=== PATIENT | female | born 1960 | race Caucasian/White ===

== ENCOUNTER 2024-11-30 09:13 | Emergency (ER) | payer MEDICARE, SELFPAY ==
[2024-11-30 09:15] VITALS: BP 140/71
[2024-11-30 10:48] VITALS: BP 126/72
[2024-11-30 10:50] VITALS: BP 126/72; BMI 25.8
[2024-11-30 11:00] VITALS: BP 132/72
--- NOTE | 2024-11-30 11:24 | ED.GENMED ---
History of Present Illness
General
Chief Complaint: Abdominal Symptoms
Source: patient
Exam Limitations: none
Time Seen by Provider: 11/30/24 10:38
Nursing documentation reviewed up to this point in time: agreed with
History of Present Illness
History of Present Illness:
64-year-old female with a past medical history of hypertension and asthma who presents to the emergency department for evaluation of pelvic pain and vaginal discharge. Unfortunately patient recently was diagnosed with a uterine mass a few days ago
and is in the process of workup and evaluation of this issue. She says that last month she started having some watery vaginal discharge. Initially saw her primary doctor who thought it could be related to overflow incontinence from her urethra and
referred her to a urogynecologist (Dr. Palmer, [facility]). Apparently was sent for pelvic ultrasound last week as part of evaluation and was found to have nearly 10 cm uterine mass. She says that she was referred to [facility] and
decided to pursue care at [facility] and has an appointment with Dr. Peoples tomorrow.
She is here in the emergency room today because since her ultrasound last week she says she has had increased amount of vaginal discharge. She describes thin watery clear discharge. She also reports increased pelvic pressure. She says that she
wanted to be evaluated 'to make sure I am okay to wait for my appointment tomorrow.' She has not had any vaginal bleeding. She denies any dysuria or hematuria. She denies any nausea or vomiting. She denies any fevers or chills. She denies any
other acute complaints.
Review of Systems
Review of Systems
All Other Systems: ROS reviewed and negative except as documented in HPI and ROS
Constitutional: Denies fever or chills
Respiratory: Denies trouble breathing
Cardiac: Denies chest pain
ABD/GI: Reports abdominal pain; Denies nausea or vomiting
: Reports discharge; Denies dysuria, flank pain or bleeding
Musculoskeletal: Denies neck pain
Neurological: Denies headache
Psychiatric: Reports anxiety
Phy Exam
Physical Exam
Physical Exam:
General: Awake, alert, oriented x3; anxious but not in distress
Head: Normocephalic, atraumatic
Eyes: Conjunctiva normal, sclera anicteric
Throat: Airway intact, handling secretions
Neck: Trachea midline, supple without meningismus
Lungs: Clear to auscultation bilaterally, no wheezing, rales, rhonchi
Heart: Regular rate and rhythm, no murmurs, gallops, or rubs
Abd: Soft, non distended, mild lower abdominal/pelvic tenderness but no peritoneal sign
Pelvic: Performed with female nurse in room as institutional research coordinator //normal external genitalia, some pooling of clear greenish discharge in the vaginal vault, no signs of cervical inflammation, no cervical motion tenderness
Back: No CVA tender
Neuro: Grossly intact
Extremities: Warm and well-perfused
Scores
Heart Failure Risk
Heart Failure Risk Score: Not Applicable
Heart Score for Chest Pain Patients
STEMI patient?: Not applicable
Withdrawal Assessment of Alcohol
Withdrawal Assessment Completed?: Not applicable
Course
Orders/Labs/Results
Orders:
Orders
11/30/24 12:30
Complete Blood Count/With Diff Urgent
Comprehensive Metabolic Panel Urgent
Chlamydia/GC by PCR Urgent
ZAIN Source: Endo-Cervical
Specimen Description:
Source:: CERVIX
Date Specimen was Collected: 11/30/24
Time Specimen was Collected: 12:27
Genital Culture Urgent
ZAIN Source: Cervix
Specimen Description:
Date Specimen was Collected: 11/30/24
Time Specimen was Collected: 12:27
Trichomonas - Wet Prep Urgent
ZAIN Source: Vagina
Specimen Description:
Date Specimen was Collected: 11/30/24
Time Specimen was Collected: 12:27
11/30/24 12:57
MetroNIDAZOLE [Flagyl] 500 mg PO NOW STA
11/30/24 12:59
Doxycycline [Vibramycin] 100 mg PO NOW STA
Abnormal Lab Results
11/30/24
12:30
MCH 31.4 H pg
(27.0-31.0)
Absolute Neuts (auto) 8.0 H 10^3/uL
(1.4-6.5)
Absolute Monos (auto) 0.9 H 10^3/uL
(0.1-0.6)
Lymphocytes % 14.4 L %
(20.5-51.1)
Glucose 111 H mg/dl
(70-99)
11/30/24 12:30
11/30/24 12:30
Vital Signs
Initial and Last Documented VS:
Initial Vital Signs
Temp Pulse Resp BP Pulse Ox
36.8 C 87 16 140/71 99
11/30/24 09:15 11/30/24 09:15 11/30/24 09:15 11/30/24 09:15 11/30/24 09:15
Last Documented Vital Signs
Temp Pulse Resp BP Pulse Ox
36.8 C 87 16 130/70 98
11/30/24 09:15 11/30/24 09:15 11/30/24 09:15 11/30/24 12:00 11/30/24 11:32
MDM/Problems Addressed
Differential Diagnosis Includes:
BV/vaginitis, cancer related discharge, PID, STD less likely
MDM/Problems Addressed:
64-year-old female presents for evaluation of vaginal discharge and pelvic pain�recently diagnosed with uterine mass and has an appointment to establish care at [place] tomorrow. Vitals and exam as above. She does have some greenish discharge in
the vaginal vault. Will discuss with her [facility] team at [facility] to see if there is any testing we can do here to facilitate her workup.
Discussed with team at [facility]�no need for testing acutely in the ER, they will evaluate and perform any testing needed at appointment tomorrow. I will send at least basic screening labs and vaginal swabs. Will cover with antibiotics for BV and
PID although no cervical motion tenderness or erythema. She looks well, I think she can be discharged to follow-up tomorrow with [facility].
*Pulse Oximetry
SaO2: 98
Oxygen Mode of Delivery: Room air
Patient hypoxic: no (98%)
*Critical Care Note
Total Time (30-74mins, 75-104mins- exclusive of procedures): Not Applicable
Data Reviewed
Source: patient and family
Patient Management
Discussion with other providers: Cartography Teacher (Discussed with [facility] at [facility])
ED Attending Note
-
Portions of this chart may have been created with voice recognition software.� Occasional wrong word or��sound alike� substitutions may have occurred due to the inherent limitations of voice recognition software.
Discharge Plan
Departure
Patient with high blood pressure during this ER visit?: No
Discharge Problem:
Vaginal discharge
Instructions: Vaginal discharge
Prescriptions:
New
doxycycline hyclate 100 mg tablet
100 mg PO BID Qty: 20 0RF
metronidazole 500 mg tablet
500 mg PO BID Qty: 20 0RF
Referrals:
Chelsy Suarez DO [Family Provider, Family Practice]
Stacey Peoples MD [Non-Admitting Privileges, Oncology] - Tomorrow
Activity Restrictions/Additional Instructions:
Thank you for visiting the Emergency Department at [facility].
1. Please schedule a follow up appointment as directed. Call first thing tomorrow morning to make an appointment.
2. If indicated, please take your medications as instructed and indicated on discharge paperwork.
3. If any of your symptoms do not improve, or persist, or become more severe within 6-12 hours, please return to the emergency department for further care.
4. Please return to the emergency department if you develop a headache, neck pain/stiffness, fever greater than 100.4F, chest pain, shortness of breath, persistent nausea, vomiting, slurred speech, difficulty walking, numbness/tingling, weakness,
signs of infection or any other symptoms that are worrisome to you.
Please call [phone] if you have any questions.
Interventions
Interventions:
*Risk Screen - Suicide Last Done: 11/30/24 10:50
*General Assessment Last Done: 11/30/24 10:50
*Neglect/Abuse Screening Last Done: 11/30/24 10:50
*ED- Fall Risk Assessment Last Done: 11/30/24 10:50
*ED COVID-19 Vaccine History Last Done: 11/30/24 10:50
LG-Lvgztc-Ytzqvikdtl Assessment Last Done: 11/30/24 10:52
Discharge Date and Time
Print Language: COMORAN
[2024-11-30 12:00] VITALS: BP 130/70
[2024-11-30 12:43] LABS: Hematocrit 39.7 % (37.0-47.0); Hemoglobin 13.2 g/dL (12.0-16.0); Mean Corp Hgb Conc. 33.2 g/dL (33.0-37.0); Mean Corpuscular Volume 94.5 fL (81.0-99.0); Nucleated Red Blood Cells % 0 %; Platelet Count 244 10^3/uL (130-400); Red Cell Dist. Width 12.1 % (11.5-14.5)
[2024-11-30 12:56] LABS: ALT (SGPT) 15 U/L (0-35); AST (SGOT) 22 U/L (14-36); Albumin 4.1 g/dl (3.5-5.0); Alkaline Phosphatase 54 U/L (38-126); Blood Urea Nitrogen 10 mg/dl (7-17); Calcium 9.4 mg/dl (8.4-10.2); Carbon Dioxide 26 mmol/L (22-30); Estimated Creatinine Clearance 80 ml/min; Glucose 111 mg/dl (70-99); Potassium 4.2 mmol/L (3.5-5.1); Sodium 139 mmol/L (135-145); Total Protein 7.4 g/dl (6.3-8.2); eGFR > 60.00
[2024-11-30 13:02] LABS: Chloride 106 mmol/L (98-107)
[2024-11-30] MEDS: VIBRAMYCIN 100 MG PO (13:03)
[2024-11-30] MEDS: FLAGYL 500 MG PO (13:03)
[2024-11-30] MEDS: MOTRIN 400 MG PO (13:06)
== END 2024-11-30 13:09 | disposition home or self-care (01) ==
LOC: EMR 09:13
PROVIDERS: EMERGENCY PHYSICIAN Emergency Medicine; FAMILY PHYSICIAN Family Medicine
DX: N89.8 Other specified noninflammatory disorders of vagina (principal); I10 Essential (primary) hypertension; J45.909 Unspecified asthma, uncomplicated
CPT/HCPCS: 99283; 80053; 85025; 87070; 87210; 87491; 87591